=== PATIENT | female | born 2005 | race Caucasian/White ===

== ENCOUNTER 2023-08-11 09:03 | Day surgery (SDC) | payer OTHER ==
[2023-08-11] MEDS ORDERED: EXPAREL 133 MG/10 ML VIAL IJ ONE (09:04)
[2023-08-11] MEDS ORDERED: Marcaine Mpf 0.5% Vial 30 Ml IJ ONE (09:04)
[2023-08-11 09:21] LABS: HCG URINE TEST NEGATIVE (NEGATIVE)
[2023-08-11] MEDS ORDERED: Lactated Ringers 1,000 ML IV ONE ×3 (09:26→13:21)
[2023-08-11 09:39] VITALS: RESP 16
[2023-08-11 09:48] LABS: Hematocrit 40.4 % (35-47); Hemoglobin 13.7 g/dL (12.0-16.0); Mean Cell Volume 91.6 fL (78-100); Mean Corpuscular Hemoglobin 31.1 pg (26-32); Mean Corpuscular Hgb Concent. 33.9 g/dL (32-36); Mean Platelet Volume 10.3 fL (7.5-11.0); Platelet Count 255 x10^3/uL (150-450); Red Blood Count 4.41 x10^6/uL (4.1-5.4); Red Cell Distribution Width 11.6 % (11.5-14.0); White Blood Count 7.7 x10^3/uL (4.0-10.5)
[2023-08-11] MEDS ORDERED: MEFOXIN 2 GM PREMIX** 2 GM/50 ML ML IV ONE (10:07)
[2023-08-11 10:08] LABS: BILIRUBIN,TOTAL 0.5 mg/dL (0.2-1.3); Calcium 8.8 mg/dL (8.4-10.2); Creatinine 1 0.7 mg/dL (0.52-1.04); EST GLOMERULAR FILTRATION RATE 126.9 ML/MIN; Potassium 4.2 mmol/L (3.5-5.1); Total Protein 6.7 g/dL (6.3-8.2)
[2023-08-11] MEDS ORDERED: CEFAZOLIN 2 GM-D5W BAG** 2 GM/50 ML ML IV ONE (10:10)
[2023-08-11] MEDS: Lactated Ringers 1,000 ML IV SCH (10:11)
[2023-08-11] MEDS: CEFAZOLIN 2 GM-D5W BAG** 2 GM/50 ML ML IV SCH (10:11)
[2023-08-11 10:15] LABS: INR 0.95 (0.8-3.0); PROTIME 10.4 SECONDS (9.4-12.5); PTT 28.5 SECONDS (25.1-36.5)
[2023-08-11] MEDS ORDERED: Epinephrine Preservative Free 1 MG/ML ONE ×2 (10:45→12:37)
[2023-08-11] MEDS ORDERED: SUBLIMAZE 100 MCG/2 ML ONE ×3 (10:56→14:48)
[2023-08-11] MEDS ORDERED: Versed 2 MG/2 ML Injection ONE (10:56)
[2023-08-11] MEDS ORDERED: DIPRIVAN 200 MG/20 ML IV ONE ×2 (10:57→14:02)
[2023-08-11] MEDS ORDERED: ROCURONIUM BROMIDE IV ONE (10:57)
[2023-08-11] MEDS ORDERED: Decadron 4 MG INJ ONE (11:20)
[2023-08-11] MEDS ORDERED: Zofran 4 MG/2 ML VIAL ONE (11:20)
[2023-08-11] MEDS ORDERED: TORAdol 30 mg Injection ONE (11:20)
[2023-08-11] MEDS ORDERED: PHENYLEPHRINE HCL ONE (12:46)
[2023-08-11] MEDS ORDERED: Ephedrine Sulfate 50 MG/ML ONE (12:52)
[2023-08-11] MEDS ORDERED: BREVIBLOC 100 MG/10 ML IV ONE (13:29)
[2023-08-11] MEDS ORDERED: BRIDION 200MG/2ML IV ONE (13:45)
[2023-08-11] MEDS ORDERED: DEXMEDETOMIDINE 80 MCG/20ML-NS IV ONE (14:13)
--- NOTE | 2023-08-11 14:13 | XRAY ---
Indication: Left ankle lateral stabilization. Arthroscopy with synovectomy. Intraoperative fluoroscopy provided for 56 seconds. Initial 3 digital spot images submitted for interpretation demonstrates instrumentation lateral malleolus.. This was followed by multiple cine images. Correlate with intraoperative findings/report.
--- NOTE | 2023-08-11 15:13 | XRAY ---
56 seconds of fluoroscopy was used in surgery for a left ankle lateral stabilization. Arthroscopy with synovectomy.
[2023-08-11 15:33] VITALS: O2SAT 100
[2023-08-11 15:49] VITALS: BP 98/61; PULSE 104; TEMP 97.5
--- NOTE | 2023-08-12 09:14 | OP ---
SURGERY DATE/TIME: 08/11/2023 1227 PREOPERATIVE DIAGNOSES: 1) Left ankle pain. 2) Left ankle synovitis. 3) Lateral ankle instability with positive anterior drawer. POSTOPERATIVE DIAGNOSES: 1) Left ankle pain. 2) Left ankle synovitis. 3) Lateral ankle instability with positive anterior drawer. PROCEDURES: 1) Ankle arthroscopy with extensive synovectomy. 2) Lateral ankle stabilization with Beryl internal brace. SURGEON: Johnson Montano DPM. ORTHO RN: None. ANESTHESIA: General with a preoperative popliteal and saphenous block. HEMOSTASIS: Tourniquet set to 300 mm of Mercury for 45 total tourniquet minutes. ESTIMATED BLOOD LOSS: Minimal. MATERIALS: Beryl JuggerKnot with BroadBand, 2.9 Betta Link with two - 1.45 JuggerKnot for reconstruction of the anterior talofibular ligament and extensor retinaculum. 4.0 Monocryl, 3-0 Nylon for closure. INJECTABLES: See anesthesia report for details. INDICATION FOR SURGERY: Jyoti is a very pleasant 18-year-old female who presented to my clinic with concerns of hallux abductovalgus as well as ankle instability and pain. The patient initially was concerned about her bunion. However, she had more pain associated with her ankle. As a result clinical examination was determined to be appropriate. She was deemed adequate candidate after a recent injury for proceeding with physical therapy and conservative modality. On follow up several months later and a missed appointment, the patient presented with continued ankle pain. The patient did have an anterior drawer that was performed demonstrating some laxity as well as a positive Marcell test at the anterior aspect of the ankle. With that, we decided given the chronicity of the pain that she was experiencing to proceed with an ankle arthroscopy with lateral ankle stabilization. The patient understands all risks, complications and benefits of surgical intervention at this time including but not limited to infection, hematoma, seroma, possibility of delayed wound healing, nonwound healing and possible need for further surgical intervention at a later date. No guarantees were provided as to the outcome of surgical intervention. Plenty of time was allowed for the patient to ask questions which were answered to her apparent satisfaction. It is at this time we decided to proceed. DESCRIPTION OF PROCEDURE AND FINDINGS: The patient is brought into the OP and placed on the OR table in the supine position. At this time, general anesthesia was administered until the patient was adequately sedated. From that standpoint, a well-padded thigh tourniquet was applied to the patient's left thigh and the tourniquet was set to 300 mm of Mercury. At this time, the left lower extremity was prepped and draped in the typical sterile fashion and lowered onto the surgical field. At this time, attention was directed to the medial aspect of the ankle joint and the lateral aspect of the ankle joint where the medial malleolus and lateral malleolus were identified. The palpable dell where the ankle joint sits in dorsiflexion were all marked out this helped us establish our anteromedial and anterolateral portal sites. Once drawn, an 18 gauge needle on a syringe was utilized to insufflate the joint. Approximately 10 cc was able to be injected into the joint with the foot raising letting us know we were intercapsular. From this standpoint, an 11 blade was utilized to make an incision and then blunt dissection was carried down to the joint capsule utilizing curved mini-hemostat. The anteromedial milton was established utilizing the obturator and blunt trocar. The obturator was then removed and then the 4.0 mm 30-degree camera was introduced and inspected the joint with a significant amount of synovitis at the aspect of the capsule. A 2.7 mm shaver was then introduced cleaning up the ankle joint where extensively the joint was full of synovitis at the medial and lateral gutters primarily. This was cleaned out, portals were switched and assessed once more. At the end of the procedure pictures were taken of the joint in better condition. The anterior talofibular ligament did seem fairly attenuated on inspection of the arthroscopy. The scopes were taken out. Esmarch was utilized to exsanguinate the leg and the tourniquet was inflated. At this time, a lateral curvilinear incision was made from the anterior process of the calcaneus to approximately 4 cm above the fibula. This was carried down carefully with blunt and sharp dissection to the level of the lateral malleolus and the talar body. Once the anterior talofibular ligament was identified, a cuff was cut off of the edge and this was resected off of the fibula this was brought down to gain access to the lateral talar body and neck. At this point, a drill was introduced at approximately a 45-degree angle relative to the central aspect of the talar body and drilled the JuggerKnot with Broadband into the talar body making sure not to damage the posterior facet or the tibiotalar joint this was checked. From that standpoint, the foot was held in ideal position and the drill for the 2.9 Betta Link was utilized to drill a hole and was secured into the fibula under fluoroscopic guidance. Following this, a 1.45 JuggerKnot was introduced just proximal and distal to this site and the anterior talofibular ligament was repaired along this orientation. Following this, anterior drawer was performed. There was a little bit of laxity so the decision was made to make the [place] modification to the procedure where the extensor retinaculum was utilized to strengthen the lateral ankle ligaments this was stitched into and hand tied and once again the ligament was stressed gaining excellent reduction and no more positive anterior drawer. From that standpoint, copious amounts of sterile saline were utilized to flush the surgical site. The skin was repaired at a subcutaneous level with simple buried interrupted-type fashion and then 3-0 Nylon was utilized in a horizontal mattress-type fashion to coapt the skin edges in an everted type fashion. The portals for the arthroscopy were stitched utilizing a simple interrupted stitch. Following this, a dressing consisting of Betadine, Adaptic, 4x4, Kerlix and ERA was applied to the patient's left lower extremity. The patient was then reversed from anesthesia and returned to the postoperative anesthesia care unit with vital signs stable and vascular status intact. The patient handled the anesthesia as well as the procedure without significant complication. Postoperative orders as indicated in the patient's discharge chart.
== END 2023-08-11 16:05 | disposition home or self-care (01) ==
LOC: SDC 09:03
PROVIDERS: ATTEND Podiatrist Foot & Ankle Surgery
DX: S93.402A Sprain of unspecified ligament of left ankle, initial encounter (principal); M25.572 Pain in left ankle and joints of left foot; M25.372 Other instability, left ankle; M65.9 Synovitis and tenosynovitis, unspecified; Z79.899 Other long term (current) drug therapy
CPT/HCPCS: 27696; 29898; 36415; 64447; 64450; 73630; 76000; 76942; 80053; 81025; 85027; 85610; 85730; C1713; J0171; J0690; J0694; J1100; J1885; J2250; J2371; J2405; J2704; J3010